=== PATIENT | female | born 2000 | race Caucasian/White ===

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

== ENCOUNTER 2019-11-03 23:02 | Emergency (ER) | payer SELFPAY ==
[2019-11-03] MEDS ORDERED: SODIUM CHLORIDE 0.9% 1000ML 1,000 ML ONE (23:42)
[2019-11-03] MEDS ORDERED: ACETAMINOPHEN 500 MG TAB ONE (23:49)
[2019-11-04] MEDS ORDERED: cefTRIAXone SODIUM 1 GM in SODIUM CHL 0.9% 50ML MIN-BAG+ 50 ML IVPB ONE (01:36)
[2019-11-04] MEDS ORDERED: cefTRIAXone SODIUM 1 GM VIAL ONE (01:37)
[2019-11-04] MEDS ORDERED: SODIUM CHL 0.9% 50ML MIN-BAG+ 50 ML IVPB ONE (01:38)
[2019-11-04 02:09] VITALS: BP 129/85; TEMP 97.6; O2SAT 98
== END 2019-11-04 02:11 | disposition home or self-care (01) ==
LOC: ER 23:02
DX: N39.0 Urinary tract infection, site not specified (principal); M54.5 Low back pain; R05 Cough; R06.02 Shortness of breath
CPT/HCPCS: 80053; 81001; 83690; 84703; 85025; 87086; J0696; J7030; J7050